=== PATIENT | female | born 1990 | race Asian ===

== ENCOUNTER → 2022-09-26 09:33 | Outpatient (CLI) | payer OTHER, SELFPAY ==
--- NOTE | 2022-09-26 09:38 | DI.MRI.S_ITS ---
PROCEDURE: MR SHOULDER RT WO CON INDICATIONS: Impingement syndrome of right shoulder TECHNIQUE: Noncontrast oblique coronal T2 fast spin echo with fat saturation, oblique sagittal T1 spin echo and T2 fast spin echo with fat saturation, axial T1 spin echo and T2 fast spin echo with fat saturation through the shoulder. COMPARISON: [facility] [place], [place], XR SHOULDER 2+ VIEWS RIGHT, 08/11/2022, 15:06. FINDINGS: Image quality: Excellent. Rotator cuff: There is mild supraspinatus and infraspinatus tendinosis and bursal surface fraying versus low-grade bursal surface tearing at the distal insertion. The teres minor and subscapularis tendons are intact. There is no significant rotator cuff muscle atrophy. Bones and bursae: No acute trabecular bone injury or fracture. Chronic traction cystic changes are seen at the posterosuperior humeral head. No focal cartilage defect in the glenohumeral joint. Minimal degenerative changes are seen at the acromioclavicular joint. There is trace amount of fluid in the subacromial/subdeltoid bursal fluid. No significant glenohumeral effusion. Capsule and soft tissues: No displaced labral tear is seen. Mild tendinosis of the biceps long head tendon. There is partial effacement of the fat in the rotator interval. There is borderline thickening of the anterior band of the inferior glenohumeral ligament. IMPRESSION: 1. Mild supraspinatus and infraspinatus tendinosis with bursal surface fraying versus low-grade bursal surface tearing. 2. Mild tendinosis of the proximal biceps long head tendon. 3. Trace subacromial/subdeltoid bursal effusion or mild bursitis. 4. Partial effacement of the rotator interval fat and borderline thickening of the inferior glenohumeral ligament are nonspecific, but can be seen in the setting of the clinical syndrome of mild adhesive capsulitis. Approved by: Koby Jiang M.D. on 09/28/2022 at 8:53
== END ==
PROVIDERS: Referring Provider Physical Medicine & Rehabilitation Pain Medicine; Visit Provider Physical Medicine & Rehabilitation Pain Medicine
DX: M75.41 Impingement syndrome of right shoulder (principal)
CPT/HCPCS: 73221